=== PATIENT | female | born 1970 | race Caucasian/White ===

== ENCOUNTER → 2024-10-19 | Day surgery (SDC) | payer OTHER | LOC: BICULT 12:53 | PROVIDERS: ATTEND Family Medicine | PROC: 0HB5XZX Excision of Chest Skin, External Approach, Diagnostic (ICD-10-PCS; principal; 2024-10-19) | DX: C50.211 Malignant neoplasm of upper-inner quadrant of right female breast (principal); K21.00 Gastro-esophageal reflux disease with esophagitis, without bleeding; J45.909 Unspecified asthma, uncomplicated; I10 Essential (primary) hypertension; M17.9 Osteoarthritis of knee, unspecified; F15.20 Other stimulant dependence, uncomplicated; F39 Unspecified mood [affective] disorder; F33.9 Major depressive disorder, recurrent, unspecified; F43.9 Reaction to severe stress, unspecified; F41.9 Anxiety disorder, unspecified; Z88.5 Allergy status to narcotic agent; Z79.51 Long term (current) use of inhaled steroids; Z79.899 Other long term (current) drug therapy | CPT/HCPCS: 19083; 88305 ==